=== PATIENT | female | born 1980 | race African-American/Black ===

== ENCOUNTER → 2023-06-03 | Outpatient (CLI) | payer OTHER | LOC: MRI 06-02 09:00 | PROVIDERS: ATTEND Family Medicine | DX: R51.9 Headache, unspecified (principal); R42 Dizziness and giddiness; Z82.3 Family history of stroke ==

== ENCOUNTER 2023-06-04 09:16 | Outpatient (CLI) | payer OTHER | END 2023-06-04 21:19 | disposition home or self-care (01) | LOC: MRI 09:16 | PROVIDERS: ATTEND Family Medicine | DX: R42 Dizziness and giddiness (principal); R51.9 Headache, unspecified ==